=== PATIENT | male | born 1930 | race Caucasian/White ===

== ENCOUNTER 2021-03-13 00:54 | Inpatient (IN) | payer MEDICARE, MEDICAID ==
[~2021-03-13] VITALS: Ht 177.8 cm; Wt 64.9 kg
[2021-03-13] MEDS ORDERED: ONDANSETRON HCL 4MG/2ML INJ IV STA (01:10)
[2021-03-13] MEDS ORDERED: NITROGLYCERIN 50MG PREMIX 250 ML IV ONE (01:15)
[2021-03-13] MEDS ORDERED: ASPIRIN 81MG TABLET PO ONE (01:15)
[2021-03-13] MEDS ORDERED: FUROSEMIDE 40MG/4ML VIAL IV ONE (01:15)
[2021-03-13 01:30] LABS: BASOPHILS % 0.5 % (0.0-2.0); EOSINOPHILS % 1.4 % (0.0-5.0); HEMATOCRIT. 38.1 % (42.0-52.0); HEMOGLOBIN. 12.7 g/dL (14.0-18.0); LYMPHOCYTES % 22.9 % (20.0-50.0); MEAN CORPUSCULAR HEMOGLOBIN 31.2 pg (28.0-32.0); MEAN CORPUSCULAR VOLUME 93.9 fL (80.0-94.0); MEAN PLATELET VOLUME 11.4 fl (7.4-10.4); MONOCYTES % 7.9 % (2.0-8.0); NEUTROPHILS % 67.3 % (40.0-76.0); PLATELET 129 x1000/uL (130-400); RED BLOOD CELL COUNT 4.06 mill/uL (4.7-6.1); RED CELL DISTRIBUTION WIDTH 13.2 % (11.6-14.6)
[2021-03-13 01:32] LABS: CHLORIDE 107 mEq/L (98-107)
[2021-03-13 01:56] LABS: INR 1.1; PROTHROMBIN TIME 11.3 sec (9.6-11.0)
[2021-03-13 02:10] LABS: BG BASE EXCESS -5.3 mmol/L (-2.0-2.0); BG CARBOXYHEMOGLOBIN 0.6 % (0.5-1.5); BG DEOXYHEMOGLOBIN 3.1 % (0.0-5.0); BG FRACTION INSPIRED OXYGEN 60; BG HCO3 ACT 21.6 mmol/L (22.0-26.0); BG METHEMOGLOBIN 0.1 % (0.0-1.5); BG OXYGEN SATURATION 96.9 % (92.0-98.5); BG OXYHEMOGLOBIN 96.2 % (94.0-97.0); BG PCO2 47.3 mmHg (35.0-45.0); BG PH 7.277 (7.350-7.450); BG SAMPLE SITE RIGHT RADIAL; BG TOTAL HEMOGLOBIN 12.5 g/dL (12.0-18.0); BG VENT MODE MASK - BIPAP
[2021-03-13] MEDS ORDERED: MAGNESIUM/ALUMINUM HYDROXIDE/SIMETHICONE 30ML UDC PO PRN (10:45)
[2021-03-13] MEDS ORDERED: DIPHENHYDRAMINE 50MG/ML VIAL IV PRN (10:45)
[2021-03-13] MEDS ORDERED: NA PHOS,M-B/NA PHOS,DI-BA ENEMA 118ML PR PRN (10:45)
[2021-03-13] MEDS ORDERED: ACETAMINOPHEN 650MG SUPP PR PRN (10:45)
[2021-03-13] MEDS ORDERED: CLONIDINE 0.1MG TABLET PO PRN (10:45)
[2021-03-13] MEDS ORDERED: IPRATROPIUM/ALBUTEROL 0.5-3(2.5)MG/3ML NEB NEB PRN (10:45)
[2021-03-13] MEDS ORDERED: HYDROCODONE/ACETAMINOPHEN 5/325MG TABLET PO PRN (10:45)
[2021-03-13] MEDS ORDERED: LEVOFLOXACIN 500MG PREMIX 100 ML IV SCH ×2 (10:45→11:00)
[2021-03-13] MEDS ORDERED: LORAZEPAM 0.5MG TABLET PO PRN (10:45)
[2021-03-13] MEDS ORDERED: DOCUSATE SODIUM 100MG CAPSULE PO PRN (10:45)
[2021-03-13] MEDS ORDERED: GUAIFENESIN 200MG/10ML SUGAR FREE UDC PO PRN (10:45)
[2021-03-13] MEDS ORDERED: ONDANSETRON HCL 4MG/2ML INJ IV PRN (10:45)
[2021-03-13] MEDS ORDERED: ACETAMINOPHEN 325MG TABLET PO PRN (10:45)
[2021-03-13] MEDS ORDERED: ENOXAPARIN 40MG/0.4ML SYR SUBCUT SCH (11:00)
[2021-03-13 11:57] LABS: BG BASE EXCESS 1.3 mmol/L (-2.0-2.0); BG CARBOXYHEMOGLOBIN 0.3 % (0.5-1.5); BG DEOXYHEMOGLOBIN 1.3 % (0.0-5.0); BG FRACTION INSPIRED OXYGEN 50; BG HCO3 ACT 26.1 mmol/L (22.0-26.0); BG METHEMOGLOBIN 0.4 % (0.0-1.5); BG OXYGEN SATURATION 98.7 % (92.0-98.5); BG PCO2 41.9 mmHg (35.0-45.0); BG PH 7.412 (7.350-7.450); BG PO2 231.7 mmHg (75.0-100.0); BG SAMPLE SITE RIGHT RADIAL; BG TOTAL HEMOGLOBIN 11.7 g/dL (12.0-18.0); BG TOTAL RESPIRATORY RATE 21 b/min; BG VENT MODE MASK - BIPAP
[2021-03-13 12:25] LABS: BASOPHILS % 0.3 % (0.0-2.0); EOSINOPHILS % 0.1 % (0.0-5.0); LYMPHOCYTES % 7.6 % (20.0-50.0); MEAN CORPUSCULAR HEMOGLOBIN 30.4 pg (28.0-32.0); MEAN PLATELET VOLUME 10.3 fl (7.4-10.4); MONOCYTES % 10.1 % (2.0-8.0); NEUTROPHILS % 81.9 % (40.0-76.0); PLATELET 85 x1000/uL (130-400); RED BLOOD CELL COUNT 3.61 mill/uL (4.7-6.1); RED CELL DISTRIBUTION WIDTH 13.3 % (11.6-14.6)
[2021-03-13 12:31] LABS: CHLORIDE 109 mEq/L (98-107)
[2021-03-13 13:30] LABS: CLARITY URINE CLEAR (CLEAR); COLOR URINE YELLOW (YELLOW); KETONES URINE NEGATIVE (NEGATIVE); LEUKOCYTE ESTERASE URINE NEGATIVE (NEGATIVE); NITRITE URINE NEGATIVE (NEGATIVE); OCCULT BLOOD URINE NEGATIVE (NEGATIVE); PROTEIN URINE NEGATIVE (NEGATIVE); UROBILINOGEN URINE 0.2 E.U./dL (0.2-1.0)
[2021-03-13 13:56] VITALS: BP 131/68
[2021-03-13 14:00] VITALS: BP 131/68
[2021-03-13] MEDS ORDERED: DEXTROSE 50% WATER 50ML SYRINGE IV PRN (14:15)
[2021-03-13] MEDS ORDERED: FLUT16SP15 BOTHNSTRLS (15:25)
[2021-03-13] MEDS ORDERED: NITR2.5C16 MT (15:25)
[2021-03-13] MEDS ORDERED: AMLO-308 PO (15:25)
[2021-03-13] MEDS ORDERED: LORA5TAB8 MT (15:25)
[2021-03-13] MEDS ORDERED: LOSA100T32 MT (15:25)
[2021-03-13] MEDS ORDERED: FAMO40TA7 MT (15:25)
[2021-03-13] MEDS ORDERED: METF-414 MT (15:25)
[2021-03-13] MEDS ORDERED: FURO-151 MT (15:25)
[2021-03-13] MEDS ORDERED: ATOR40TA70 MT (15:25)
[2021-03-13 16:23] VITALS: BP 116/54
[2021-03-13 16:53] LABS: CREATINE KINASE MB FRACTION 3.3 ng/mL (0.5-3.6)
[2021-03-13] MEDS: BLOOD SUGAR DIAGNOSTIC STRIP TEST SCH ×2 (16:53→21:20)
[2021-03-13] MEDS: FUROSEMIDE 40MG/4ML VIAL IV SCH (17:15)
[2021-03-13] MEDS: INSULIN LISPRO 100 UNITS/ML SUBCUT SCH ×2 (17:15→21:00)
[2021-03-13] MEDS: METOCLOPRAMIDE HCL 10MG/2ML VIAL IV SCH (17:16)
[2021-03-13 17:42] VITALS: BP 127/59
[2021-03-13 20:00] VITALS: BP 114/55
[2021-03-13] MEDS: FAMOTIDINE 20MG TABLET PO SCH (21:23)
[2021-03-13 22:00] VITALS: BP 115/45
[2021-03-14] VITALS (11 sets, daily range): BP systolic 125–143; BP diastolic 45–77
[2021-03-14 00:47] LABS: CREATINE KINASE MB FRACTION 2.5 ng/mL (0.5-3.6)
[2021-03-14] MEDS: METOCLOPRAMIDE HCL 10MG/2ML VIAL IV SCH ×4 (01:07→17:47)
[2021-03-14] MEDS: BLOOD SUGAR DIAGNOSTIC STRIP TEST SCH ×4 (06:23→20:50)
[2021-03-14] MEDS: INSULIN LISPRO 100 UNITS/ML SUBCUT SCH ×5 (07:20→20:55)
[2021-03-14 07:40] LABS: BASOPHILS % 0.7 % (0.0-2.0); EOSINOPHILS % 0.8 % (0.0-5.0); HEMATOCRIT. 28.5 % (42.0-52.0); HEMOGLOBIN. 9.7 g/dL (14.0-18.0); LYMPHOCYTES % 15.1 % (20.0-50.0); MEAN CORPUSCULAR HEMOGLOBIN 31.3 pg (28.0-32.0); MEAN CORPUSCULAR VOLUME 91.8 fL (80.0-94.0); MEAN PLATELET VOLUME 10.9 fl (7.4-10.4); MONOCYTES % 12.3 % (2.0-8.0); NEUTROPHILS % 71.1 % (40.0-76.0); PLATELET 90 x1000/uL (130-400)
[2021-03-14 07:47] LABS: CHLORIDE 107 mEq/L (98-107)
[2021-03-14 07:58] LABS: LDL CHOLESTEROL 47 mg/dL (5-100)
[2021-03-14 07:59] LABS: HDL CHOLESTEROL 56 mg/dL (40-59); T4 FREE 1.04 ng/dL (0.76-1.46)
[2021-03-14] MEDS: FUROSEMIDE 40MG/4ML VIAL IV SCH (08:23)
[2021-03-14] MEDS ORDERED: LEVOFLOXACIN 250MG PREMIX 50 ML IV SCH (11:00)
[2021-03-14] MEDS ORDERED: NALOXONE HCL 0.4MG/ML VIAL IV PRN (13:00)
[2021-03-14 13:46] LABS: BG BASE EXCESS 4.1 mmol/L (-2.0-2.0); BG CARBOXYHEMOGLOBIN 0.1 % (0.5-1.5); BG DEOXYHEMOGLOBIN 4.1 % (0.0-5.0); BG FRACTION INSPIRED OXYGEN 21; BG HCO3 ACT 28.2 mmol/L (22.0-26.0); BG METHEMOGLOBIN 0.1 % (0.0-1.5); BG OXYGEN SATURATION 95.9 % (92.0-98.5); BG OXYHEMOGLOBIN 95.7 % (94.0-97.0); BG PCO2 40.7 mmHg (35.0-45.0); BG PH 7.459 (7.350-7.450); BG PO2 80.1 mmHg (75.0-100.0); BG SAMPLE SITE LEFT RADIAL; BG TOTAL HEMOGLOBIN 10.9 g/dL (12.0-18.0); BG VENT MODE ROOM AIR
[2021-03-14] MEDS: LEVOFLOXACIN 250MG PREMIX 50 ML IV SCH (13:52)
[2021-03-14 19:38] LABS: HEMOGLOBIN 10.6 g/dL (14.0-18.0)
[2021-03-14 19:51] LABS: TOTAL IRON BINDING CAPACITY 297 ug/dL (250-450)
[2021-03-14 20:03] LABS: FERRITIN 78 ng/mL (22-322)
[2021-03-14] MEDS: FAMOTIDINE 20MG TABLET PO SCH (20:46)
[2021-03-15] VITALS (8 sets, daily range): BP systolic 121–145; BP diastolic 49–81
[2021-03-15] MEDS: METOCLOPRAMIDE HCL 10MG/2ML VIAL IV SCH ×3 (00:14→13:10)
[2021-03-15 06:46] LABS: BASOPHILS % 0.4 % (0.0-2.0); EOSINOPHILS % 1.1 % (0.0-5.0); HEMATOCRIT. 29.9 % (42.0-52.0); HEMOGLOBIN. 10.2 g/dL (14.0-18.0); LYMPHOCYTES % 18.2 % (20.0-50.0); MEAN CORPUSCULAR HEMOGLOBIN 31.3 pg (28.0-32.0); MEAN CORPUSCULAR VOLUME 91.6 fL (80.0-94.0); MEAN PLATELET VOLUME 10.5 fl (7.4-10.4); NEUTROPHILS % 67.3 % (40.0-76.0); PLATELET 95 x1000/uL (130-400); RED BLOOD CELL COUNT 3.26 mill/uL (4.7-6.1); RED CELL DISTRIBUTION WIDTH 12.8 % (11.6-14.6)
[2021-03-15] MEDS: BLOOD SUGAR DIAGNOSTIC STRIP TEST SCH ×2 (06:46→11:50)
[2021-03-15] MEDS: INSULIN LISPRO 100 UNITS/ML SUBCUT SCH ×2 (06:59→13:11)
[2021-03-15] MEDS ORDERED: FAMO40TA7 MT (10:40)
[2021-03-15] MEDS ORDERED: METF-414 MT (10:40)
[2021-03-15] MEDS ORDERED: LEVO250T58 MT (10:40)
[2021-03-15] MEDS ORDERED: FERR-71 MT (10:40)
[2021-03-15] MEDS ORDERED: FURO-151 MT (10:40)
[2021-03-15] MEDS ORDERED: ATOR40TA70 MT (10:40)
[2021-03-15] MEDS ORDERED: FERROUS SULFATE 325MG TABLET PO SCH (12:20)
[2021-03-15] MEDS: LEVOFLOXACIN 250MG PREMIX 50 ML IV SCH (13:10)
[2021-03-15 14:29] LABS: VITAMIN B12 SERUM 1566 pg/mL (211-911)
== END 2021-03-15 15:40 | disposition home or self-care (01) | DRG 189 ==
LOC: ER 00:54 → MICUSO 04:52 → EDBEDREQTM 04:56 → EDBEDREQSVC 04:56 → EDBEDREQ 04:56 → 3WST 12:36
PROVIDERS: ADMIT Internal Medicine; ATTEND Internal Medicine
PROC: 5A09357 Assistance with Respiratory Ventilation, Less than 24 Consecutive Hours, Continuous Positive Airway Pressure (ICD-10-PCS; principal; 2021-03-13)
PROC: 5A09357 Assistance with Respiratory Ventilation, Less than 24 Consecutive Hours, Continuous Positive Airway Pressure (ICD-10-PCS; 2021-03-14)
DX: J96.01 Acute respiratory failure with hypoxia (principal); J18.9 Pneumonia, unspecified organism; N17.9 Acute kidney failure, unspecified; E87.2 Acidosis; I13.0 Hypertensive heart and chronic kidney disease with heart failure and stage 1 through stage 4 chronic kidney disease, or unspecified chronic kidney disease; I42.9 Cardiomyopathy, unspecified; I48.0 Paroxysmal atrial fibrillation; D64.9 Anemia, unspecified; D69.6 Thrombocytopenia, unspecified; E11.22 Type 2 diabetes mellitus with diabetic chronic kidney disease; E11.65 Type 2 diabetes mellitus with hyperglycemia; E78.5 Hyperlipidemia, unspecified; I25.10 Atherosclerotic heart disease of native coronary artery without angina pectoris; I50.9 Heart failure, unspecified; N18.9 Chronic kidney disease, unspecified; E61.1 Iron deficiency; R54 Age-related physical debility; Z96.653 Presence of artificial knee joint, bilateral; Z20.822 Contact with and (suspected) exposure to COVID-19; Z95.1 Presence of aortocoronary bypass graft; Z95.2 Presence of prosthetic heart valve; Z82.49 Family history of ischemic heart disease and other diseases of the circulatory system; Z95.5 Presence of coronary angioplasty implant and graft; Z79.899 Other long term (current) drug therapy; Z79.84 Long term (current) use of oral hypoglycemic drugs
CPT/HCPCS: 36415; 36600; 71045; 74018; 78582; 80048; 80053; 80061; 81003; 82375; 82550; 82553; 82607; 82728; 82805; 82962; 83036; 83540; 83550; 83605; 83880; 84439; 84443; 84484; 85014; 85018; 85025; 85044; 87426; 93005; 93306; 93970; 94618; 94660; 97162; 99285; A9558; J1650; J1815; J1940; J1956; J2405; J2765; J3490